=== PATIENT | female | born 1965 | race American Indian/Alaskan Native ===

== ENCOUNTER 2017-03-22 08:52 | Emergency (ER) | payer MEDICARE ==
[2017-03-22 09:02] VITALS: BP 149/116
== END 2017-03-22 09:10 | disposition left against medical advice (07) ==
LOC: ED 08:52
DX: M54.2 Cervicalgia (principal); M25.529 Pain in unspecified elbow; N39.0 Urinary tract infection, site not specified; Z53.21 Procedure and treatment not carried out due to patient leaving prior to being seen by health care provider

== ENCOUNTER 2020-12-30 18:40 | Emergency (ER) | payer MEDICARE ==
[2020-12-30] MEDS ORDERED: ASPIRIN 81 MG TAB CHEW PO ONE (18:58)
--- NOTE | 2020-12-30 19:01 | Event Note ---
ED Screening Note Date of service: 12/30/20 Time: 19:00 ED Screening Note: 55-year-old female patient with history of hypertension, mitral valve prolapse, and prior stroke with residual left-sided deficits presents to the emergency department with complaints of chest pain and associated dyspnea starting approximately 1 hour ago. No known history of prior MO. General: Awake, appropriately interactive, no acute distress. Neck: Supple. Full range of motion intact. Cardiovascular: Normal peripheral perfusion. Pulmonary: No respiratory distress. Patient is speaking normally without use of accessory muscles. Skin: No apparent rashes or lesions. Neurological: No facial asymmetry. Speech is clear. Follows commands. Patient is alert and oriented. Musculoskeletal: Moves all four extremities spontaneously with normal range of motion. Psych: Cooperative. Appropriate mood and affect. I have greeted and performed a focused rapid initial assessment of this patient. A comprehensive ED assessment and evaluation of the patient, analysis of all test results, and completion of the medical decision-making process will be conducted by additional ED providers. This initial assessment/diagnostic orders/clinical plan/treatment(s) is/are subject to change based on patients health status, clinical progression and re-assessment. Further treatment and workup at subsequent clinical provider's discretion. Patient/guardian urged not to elope from the ED as their condition may be serious if not clinically assessed and managed.
[2020-12-30 19:02] VITALS: BP 122/83
--- NOTE | 2020-12-30 19:28 | XRay Report ---
CHEST 2 VIEWS INDICATION / CLINICAL INFORMATION: chest pain. COMPARISON: None available. FINDINGS: SUPPORT DEVICES: None. HEART / MEDIASTINUM: No significant abnormality. LUNGS / PLEURA: No significant pulmonary or pleural abnormality. No pneumothorax. ADDITIONAL FINDINGS: No significant additional findings. IMPRESSION: 1. No acute findings. Signer Name: Larry Reddy MD Signed: 12/30/2020 7:23 PM Workstation Name: [id number]
[2020-12-30 19:50] LABS: Basophils % (Auto) 0.4 % (0.0-1.8); Eosinophils # (Auto) 0.1 K/mm3 (0.0-0.4); Eosinophils % (Auto) 1.2 % (0.0-4.3); Hematocrit 41.4 % (30.3-42.9); Hemoglobin 14.4 gm/dl (10.1-14.3); Lymphocytes # (Auto) 2.5 K/mm3 (1.2-5.4); Lymphocytes % (Auto) 35.4 % (13.4-35.0); Mean Corpuscular HGB Conc 35 % (30-34); Mean Corpuscular Volume 86 fl (79-97); Monocytes # (Auto) 0.5 K/mm3 (0.0-0.8); Monocytes % (Auto) 7.3 % (0.0-7.3); Platelet Count 249 K/mm3 (140-440); Red Blood Count 4.82 M/mm3 (3.65-5.03); Red Cell Distribution Width 13.7 % (13.2-15.2)
[2020-12-30 20:00] LABS: INR 0.94 (0.87-1.13)
[2020-12-30 20:01] LABS: Partial Thromboplastin Time 29.3 Sec. (24.2-36.6)
[2020-12-30 20:09] LABS: Alanine Aminotransferase 30 units/L (7-56); Albumin 4.3 g/dL (3.9-5); Blood Urea Nitrogen 16 mg/dL (7-17); Hemolysis Index 5
[2020-12-30 20:10] LABS: BUN/Creatinine Ratio 23
== END 2020-12-30 22:00 | disposition left against medical advice (07) ==
LOC: ED 18:40
DX: R07.89 Other chest pain (principal); R06.00 Dyspnea, unspecified; Z53.21 Procedure and treatment not carried out due to patient leaving prior to being seen by health care provider
CPT/HCPCS: 36415; 71046; 80053; 83735; 84484; 85025; 85610; 85730; 93005